=== PATIENT | male | born 1990 | race Caucasian/White ===

== ENCOUNTER 2018-02-27 13:24 | Emergency (ER) | payer SELFPAY ==
[2018-02-27 13:48] VITALS: BP 142/67; PULSE 74; TEMP 98.2; BMI 38.2
--- NOTE | 2018-02-27 14:22 | PDOC ---
History of Present Illness - General Chief Complaint: Eye Problem Stated Complaint: EYE PROBLEM Time Seen by Provider: 02/27/18 14:16 History Source: Patient, [facility] Used (#[id number]) Exam Limitations: Clinical Condition - History of Present Illness Initial Comments: 02/27/18 14:18 Patient with no significant past medication present with complaint of redness in right eye, excessive tearing and feeling of foreign body inside right eye for 3 days. Patient denies contact lens use or corrective lens use. Patient denies any trauma to eye Timing/Duration: other (3 days) Past History - Past Medical History Allergies/Adverse Reactions: Allergies Allergy/AdvReac Type Severity Reaction Status Date / Time No Known Allergies Allergy Verified 02/27/18 13:43 Home Medications: Ambulatory Orders Erythromycin 0.5% Eye Ointment [Erythromycin 0.5% Eye Ointment -] 1 applic TP BID 5 Days #1 tube 02/27/18 Ofloxacin 0.3% Ophth Soln [Ocuflox -] 2 drop OP Q6H 5 Days #1 bottle 02/27/18 - Suicide/Smoking/Psychosocial Hx Smoking History: Never smoked Review of Systems - Review of Systems Able to Perform ROS?: Yes Is the patient limited Ma[place] proficient: No Constitutional: No: Fever HEENTM: Yes: Symptoms Reported, See HPI, Eye Pain (right eye), Blurred Vision, Tearing (right eye), Recent change in vision. No: Double Vision, Cataracts, Ear Pain, Ocular Prothesis, Ear Discharge, Nose Pain, Nose Congestion, Tinnitus , Nose Bleeding, Hearing Loss, Throat Pain, Throat Swelling, Mouth Pain, Dental Problems, Difficulty Swallowing, Mouth Swelling, Other Respiratory: No: Symptoms reported, See HPI, Cough, Orthopnea, Shortness of Breath, SOB with Exertion, SOB at Rest, Stridor, Wheezing, Productive cough, Hemoptysis, Other Cardiac (ROS): No: Symptoms Reported, See HPI, Chest Pain, Edema, Irregular Heart Rate, Lightheadedness, Palpitations, Syncope, Chest Tightness, Other ABD/GI: No: Symptoms Reported, See HPI, Abdominal Distended, Abd. Pain w/ defecation, Blood Streaked Bowels, Constipated, Diarrhea, Difficulty Swallowing , Nausea, Poor Appetite, Poor Fluid Intake, Rectal Bleeding, Vomiting, Indigestion, Abdominal cramping, Tarry Stools, Other All Other Systems: Reviewed and Negative *Physical Exam - Vital Signs Last Vital Signs Temp Pulse Resp BP Pulse Ox 98.2 F 74 18 142/67 98 02/27/18 13:43 02/27/18 13:43 02/27/18 13:43 02/27/18 13:43 02/27/18 13:43 - Physical Exam Comments: 02/27/18 14:29 GENERAL: Well developed, well nourished. Awake and alert. No acute distress. HEENT: moderately injected right conjunctiva with small internal hordeolum to medial side of right upper eyelid. Normocephalic, atraumatic. PERRLA, EOMI. No left conjunctival pallor. Sclera are non-icteric. Moist mucous membranes. Oropharynx is clear. NECK: Supple. Full ROM. CARDIOVASCULAR: Regular rate and rhythm. No murmurs, rubs, or gallops. Distal pulses are 2+ and symmetric. PULMONARY: No evidence of respiratory distress. Lungs clear to auscultation bilaterally. No wheezing, rales or rhonchi. ABDOMINAL: Soft. Non-tender. Non-distended. No rebound or guarding. No organomegaly. Normoactive bowel sounds. SKIN: Warm and dry. No rashes. No jaundice. NEUROLOGICAL: Alert, awake, appropriate. Gait is normal without ataxia. PSYCHIATRIC: Cooperative. Good eye contact. Appropriate mood General Appearance: Yes: Nourished, Appropriately Dressed. No: Apparent Distress Medical Decision Making - Medical Decision Making 02/27/18 14:17 Patient with no significant past medication present with complaint of redness in right eye, excessive tearing and feeling of foreign body inside right eye for 3 days. exam significant for moderate injected right conjunctiva with small internal upper eyelid hordeolum. patient stable for outpatient treated with ophthalmology follow-up 02/27/18 14:33 *DC/Admit/Observation/Transfer Diagnosis at time of Disposition: Sty, internal Qualifiers: Laterality: right Eyelid: upper Qualified Code(s): H00.021 - Hordeolum internum right upper eyelid Conjunctivitis Qualifiers: Conjunctivitis type: acute Acute conjunctivitis type: unspecified Laterality: right Qualified Code(s): H10.31 - Unspecified acute conjunctivitis, right eye - Discharge Dispostion Disposition: HOME Condition at time of disposition: Stable Decision to Admit order: No - Prescriptions Prescriptions: Erythromycin 0.5% Eye Ointment [Erythromycin 0.5% Eye Ointment -] 1 applic TP BID 5 Days #1 tube Ofloxacin 0.3% Ophth Soln [Ocuflox -] 2 drop OP Q6H 5 Days #1 bottle - Referrals Referrals: Radha Rodrigez MD [Staff Physician] - - Patient Instructions Printed Discharge Instructions: DI for Conjunctivitis, DI for Hordeolum Additional Instructions: take medications as prescribed. apply warm compress to right eye 2-3times/ day for 5/10mins. follow-up with referred ophthalmology Print Language: TURKISH - Post Discharge Activity
== END 2018-02-27 14:30 | disposition home or self-care (01) ==
LOC: JERFT 13:24
DX: H00.021 Hordeolum internum right upper eyelid (principal); H10.31 Unspecified acute conjunctivitis, right eye
CPT/HCPCS: 99281-25